=== PATIENT | female | born 1995 | race Two or more races ===

== ENCOUNTER 2024-04-13 12:23 | Emergency (ER) | payer MEDICAID, OTHER ==
[~2024-04-13] VITALS: Ht 157.5 cm; Wt 44.7 kg
[2024-04-13 12:42] VITALS: BP 121/88; PULSE 103; RESP 18; O2SAT 95
== END 2024-04-13 15:49 | disposition left against medical advice (07) ==
LOC: ER 12:23
DX: S61.253A Open bite of left middle finger without damage to nail, initial encounter (principal); Z53.21 Procedure and treatment not carried out due to patient leaving prior to being seen by health care provider; W54.0XXA Bitten by dog, initial encounter; Y93.89 Activity, other specified; Y92.89 Other specified places as the place of occurrence of the external cause; Y99.8 Other external cause status